=== PATIENT | female | born 1965 | race Caucasian/White ===

== ENCOUNTER 2017-06-16 10:16 | Emergency (ER) | payer BC ==
[2017-06-16] MEDS ORDERED: Ketorolac INJ* 30 MG/ML 1 ML VIAL IV PUSH ONE (10:44)
[2017-06-16] MEDS ORDERED: Ondansetron INJ* 2 MG/ML VIAL IV ONE (10:44)
[2017-06-16] MEDS ORDERED: NS 0.9% 1000 ML* 1,000 ML IV ONE (10:44)
[2017-06-16] MEDS ORDERED: Morphine INJ* 4 MG/ML 1 ML SYRINGE (NEW SYRINGE VERSION) IV ONE (10:44)
[2017-06-16 10:49] LABS: ABS Basophils 0 10^3/ul (0-0.2); ABS Eosinophils 0.1 10^3/ul (0-0.6); ABS Lymphocytes 1.1 10^3/ul (1.0-4.8); ABS Monocytes 0.4 10^3/ul (0-0.8); ABS Neutrophils 4.3 10^3/ul (1.5-7.7); ABS Nucleated RBC 0 10^3/ul; Hematocrit 45 % (35-47); Hemoglobin 14.7 g/dl (12.0-16.0); Lymphocyte % 19.1 % (25-47); Mean Corpuscular HGB Conc 33 g/dl (31-36); Mean Corpuscular Hemoglobin 31 pg (27-31); Mean Corpuscular Volume 94 fL (80-97); Mean Platelet Volume 6.6 um3 (7.4-10.4); Nucleated Red Blood Cells % 0; Platelet Count 230 10^3/ul (150-450); Red Blood Count 4.75 10^6/ul (4.0-5.4); Red Cell Distribution Width 13 % (10.5-15)
[2017-06-16 11:08] LABS: EGFR Non-African American 64.4 (>60)
[2017-06-16 11:35] LABS: Urine Appearance Clear; Urine Blood Negative (Negative); Urine Color Yellow; Urine Ketones Negative (Negative); Urine Protein Negative (Negative); Urine Specific Gravity 1.008 (1.010-1.030); Urine Urobilinogen Negative (Negative)
--- NOTE | 2017-06-16 12:37 | RAD ---
INDICATION: Low back pain. Fever. Worsening symptoms today. Previous inguinal hernia repair. COMPARISON: No relevant prior exams available on the [facility] PACS for comparison. TECHNIQUE: Multidetector CT images were obtained from the lung bases to the ischial tuberosities. Evaluation of the viscera is limited without IV contrast. Multiplanar reformation. REPORT: Minimal atelectasis at the lung bases. 20 cm cephalocaudal liver with variant cephalocaudal elongated RIGHT hepatic lobe. No focal abnormality of the liver. Decompressed gallbladder limiting assessment without gross CT abnormality. Unremarkable pancreas and spleen. Negative for CT abnormality of the upper GI, small bowel, appendix, or colon. Negative for ascites, free air, hernias. Normal adrenal glands. Unremarkable unenhanced kidneys. Negative for obstructive uropathy. Unremarkable ureters and partially distended urinary bladder as well as the anteverted uterus and adnexal regions. Negative for lymphadenopathy. Normal diameter anomaly aorta and iliac arteries. Physiologic distention of the IVC. Negative for fracture or suspicious osseous lesions. Mild annular disc bulges at L4-L5 and L5-S1 with only minimal resulting impression on the ventral margin of the thecal sac at L4-L5. 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 IMPRESSION: No acute abdominal pelvic pathologic process evident. Normal appendix documented. Negative for obstructive uropathy.
--- NOTE | 2017-06-16 12:45 | RAD ---
Indication: RIGHT adnexal region and back pain. Comparison: CT of the same date. Technique: Transabdominal pelvic ultrasound. Report: Unremarkable 7.0 x 3.5 x 4.1 cm anteverted uterus with 13 mm endometrium. Negative for free pelvic fluid. 1.2 x 0.8 x 2.1 cm RIGHT ovary with documented vascular flow is unremarkable. 1.9 x 1.0 x 2.2 cm LEFT ovary with documented vascular flow is unremarkable. No visualized extra ovarian adnexal region lesions evident. IMPRESSION: Negative pelvic ultrasound.
[2017-06-16 13:35] VITALS: BP 109/70
--- NOTE | 2017-07-02 13:01 | ED ---
Palbo Gimenez Stephanie, scribed for Alexis Johnson MD on 06/16/17 at 1045 . Back Pain - HPI Summary HPI Summary: The pt is a 51 y/o F presenting to the ED with c/o lower back pain that began on 06/13/17. The pt states her back pain started on the R side of the back and traveled to both sides. Symptoms include fever, diaphoresis, chills and nausea. The pt denies dysuria, hematuria, urinary frequency, N/V/D, LE tingling/ numbness. - History of Current Complaint Chief Complaint: EDBackInjuryPain Stated Complaint: BACK PAIN Time Seen by Provider: 06/16/17 10:26 Hx Obtained From: Patient Onset/Duration: Sudden Onset, Lasting Hours, Still Present Timing: Constant Back Pain Location: Is Discrete @ - lower back Severity Currently: Severe Pain Intensity: 8 Pain Scale Used: 0-10 Numeric Aggravating Symptom(s): Movement Alleviating Symptom(s): Nothing Associated Signs And Symptoms: Positive: Fever, Other - diaphoresis, chills, nausea.. Negative: Numbness - diaphoresis, chills, nausea. Negative: dysuria, hematuria, urinary frequency, N/V/D, LE tingling/numbness., Tingling - Allergies/Home Medications Allergies/Adverse Reactions: Allergies Allergy/AdvReac Type Severity Reaction Status Date / Time No Known Allergies Allergy Verified 06/16/17 10:33 PMH/Surg Hx/FS Hx/Imm Hx Endocrine/Hematology History: Denies: Hx Anticoagulant Therapy, Other Endocrine/Hematological Disorders Cardiovascular History: Denies: Other Cardiovascular Problems/Disorders Respiratory History: Denies: Other Respiratory Problems/Disorders GI History: Denies: Other GI Disorders History: Denies: Other Problems/Disorders Musculoskeletal History: Denies: Other Musculoskeletal History Sensory History: Denies: Other Sensory Impairments Opthamlomology History: Denies: Other Sensory Impairments Neurological History: Denies: Other Neuro Impairments/Disorders Psychiatric History: Denies: Other Psychiatric Issues/Disorders - Cancer History Hx Chemotherapy: No Hx Radiation Therapy: No - Surgical History Surgery Procedure, Year, and Place: Tonsillectomy Hx Anesthesia Reactions: No Infectious Disease History: No Infectious Disease History: Denies: Traveled Outside the [place] in Last 30 Days - Family History Known Family History: Positive: Hypertension - paternal, Other - MS-maternal, cancer - Social History Occupation: Employed Full-time Lives: With Family Alcohol Use: Occasionally Substance Use Type: Reports: None Review of Systems Positive: Fever, Chills, Skin Diaphoresis Negative: Erythema Negative: Sore Throat Negative: Chest Pain Negative: Shortness Of Breath, Cough Positive: Nausea. Negative: Abdominal Pain, Vomiting, Diarrhea Negative: dysuria, frequency, hematuria Negative: Myalgia, Edema Negative: Rash Neurological: Other - Negative: dizziness Negative: Paresthesia, Numbness All Other Systems Reviewed And Are Negative: Yes Physical Exam - Summary Physical Exam Summary: Constitutional: Well-developed, Well-nourished, Alert. The pt is in moderate pain especially when she tries to move. Skin: Warm, Dry HENT: Normocephalic; Atraumatic Eyes: Conjunctiva normal Neck: Musculoskeletal ROM normal neck. (-) JVD, (-) Stridor, (-) Tracheal deviation Cardio: Rhythm regular, rate normal, Heart sounds normal; Intact distal pulses; The pedal pulses are 2+ and symmetric. Radial pulses are 2+ and symmetric. (-) Murmur Pulmonary/Chest wall: Effort normal. (-) Respiratory distress, (-) Wheezes, (-) Rales Abd: Soft, mild CVA tenderness bilaterally, (-) Distension, (-) Guarding, (-) Rebound Musculoskeletal: (-) Edema Lymph: (-) Cervical adenopathy Neuro: Alert, Oriented x3 Psych: Mood and affect Normal Triage Information Reviewed: Yes Vital Signs On Initial Exam: Initial Vitals Temp Pulse Resp BP Pulse Ox 99.8 F 104 19 111/52 100 06/16/17 10:20 06/16/17 10:20 06/16/17 10:20 06/16/17 10:20 06/16/17 10:20 Vital Signs Reviewed: Yes Diagnostics - Vital Signs Vital Signs Temp Pulse Resp BP Pulse Ox 06/16/17 10:20 99.8 F 104 19 111/52 100 - Laboratory Result Diagrams: 06/16/17 10:37 06/16/17 10:37 Lab Statement: Any lab studies that have been ordered have been reviewed, and results considered in the medical decision making process. - CT Abdomen/Pelvis CT Interpretation: No Acute Changes CT Interpretation Completed By: Radiologist - No acute abdominal pelvic pathologic process evident. Normal appendix documented. Negative for obstructive uropathy. ED physician has reviewed this report and agrees. - Additional Comments Diagnostic Additional Comments: Pelvis US reveals: Negative pelvis ultrasound. Re-Evaluation - Re-Evaluation First Eval Re-Evaluation Time: 11:50 Change: Improved - Pain is resolved. No abd tenderness other than mild R adenexal tenderness. Due to severity of previous pain, ED physician will order a CT and US. Second Eval Re-Evaluation Time: 13:22 Change: Improved - The pt is ambulatory. Back Pain Course/Dx - Course Course Of Treatment: There are no features of cauda equina syndrome or epidural abscess. No neural deficits or sciatica. - Diagnoses Provider Diagnoses: Lower back pain Discharge - Sign-Out/Discharge Documenting (check all that apply): Discharge - Discharge Plan Condition: Stable Disposition: HOME Prescriptions: Diazepam TAB(*) [Valium TAB(*)] 5 mg PO TID PRN #10 tab MDD 3 PRN Reason: Pain Scale 6-10 Lidocaine PATCH 5%* [Lidoderm 5% Patch*] 1 patch TRANSDERM DAILY #10 patch Patient Education Materials: Low Back Strain (ED), Acute Low Back Pain (ED) Forms: *Work Release Referrals: Elvira Mabry MD [Primary Care Provider] - 2 Days Additional Instructions: RETURN TO THE EMERGENCY DEPARTMENT FOR CHANGING OR WORSENING SYMPTOMS. The documentation as recorded by the Pablo sanders Stephanie accurately reflects the service I personally performed and the decisions made by , Alexis Johnson MD.
== END 2017-06-16 13:38 | disposition home or self-care (01) ==
LOC: ED 10:16
DX: M54.5 Low back pain (principal); R50.9 Fever, unspecified; R11.0 Nausea
CPT/HCPCS: 36415; 74176; 76856; 80053; 81003; 83605; 83690; 85025; 86140; 87502; 99282; J1885; J2270; J2405